=== PATIENT | male | born 1980 | race Caucasian/White ===

== ENCOUNTER → 2019-12-21 | Outpatient (CLI) | payer BC ==
--- NOTE | 2019-12-21 17:51 | Diagnostic Imaging Report ---
INDICATION: Thyromegaly TECHNIQUE: Grayscale sonographic images of the thyroid gland. CORRELATION STUDY: None FINDINGS: RIGHT LOBE: 4.5 x 1.4 x 1.3 cm. There is normal echotexture about the right lobe. LEFT LOBE: 5.5 x 1.5 x 1.2 cm. Very small oval peripherally hypoechoic central echogenic nodule. This measures 5 x 3 x 5 mm. Minimal peripheral vascularity. Isthmus appears unremarkable. IMPRESSION: Borderline prominent thyroid gland. A single small left lobe nodule. (Normal gland size: 4-5 x 2 x 2 cm) Dictated by: Dictated on workstation # [id number]
== END ==
LOC: RAD 14:58
PROVIDERS: ATTEND Nurse Practitioner Family
DX: E01.0 Iodine-deficiency related diffuse (endemic) goiter (principal)
CPT/HCPCS: 76536

== ENCOUNTER 2023-01-01 14:48 | Outpatient (RCR) | payer BC | END 2023-01-02 | disposition home or self-care (01) | PROVIDERS: ATTEND Internal Medicine | DX: S73.11 Iliofemoral ligament sprain of hip (principal); X58.XXXD Exposure to other specified factors, subsequent encounter ==

== ENCOUNTER → 2023-01-09 | Outpatient (CLI) | payer BC ==
--- NOTE | 2023-01-09 10:38 | Diagnostic Imaging Report ---
EXAMINATION: Magnetic resonance imaging of the pelvis without contrast DATE: January 09, 2023. COMPARISON: None. INDICATION: 42-year-old male, low back and left hip and inguinal pain. TECHNIQUE: Magnetic Resonance Imaging sequences were performed of the pelvis without contrast. TENDONS AND MUSCLES: The gluteus cristiano muscles and their origins and insertions are intact bilaterally. The tendons and muscles of the greater trochanter - gluteus minimus, piriformis and gluteus medius - are intact bilaterally. Both common hamstring attachments on the ischial tuberosities are intact and the extensor muscles of the thigh are intact. The visualized portions of the flexors and adductor muscles of the thigh and their attachments on the pelvis and hips are intact. Both iliopsoas and iliacus muscles are intact. The bilateral iliopsoas tendons are intact. HIPS AND SACROILIAC JOINTS: The contours of the femoral heads and acetabuli are smooth and symmetric. There is no identified fluid-filled labral tear or paralabral cyst. The articular cartilage of the hips appears grossly intact. There is no hip joint effusion. The sacroiliac joints are unremarkable. LUMBAR SPINE: Please see separately dictated same day MRI lumbar spine report for findings of the lumbar spine better assessed on the dedicated study. There is transitional lumbosacral anatomy. BONE: There is no acute fracture, bone contusion, or evidence of osteonecrosis. There is no identified concerning bone lesion. BURSAE AND SOFT TISSUES: The bursae and soft tissues surrounding the pelvis and hips are within normal limits. IMPRESSION: 1. Unremarkable evaluation of both hip joints. 2. Intact muscles and tendons. 3. No acute fracture, bone contusion, evidence of osteonecrosis, or focal concerning bone lesion. 4. Unremarkable bursal and additional soft tissue assessment. 5. Please see separately dictated MR lumbar spine report for findings of the lumbar spine. There is transitional lumbosacral anatomy. Dictated by: Dictated on workstation # [id number]
--- NOTE | 2023-01-09 10:38 | Diagnostic Imaging Report ---
PROCEDURE: MRI lumbar spine. TECHNIQUE: Multiplanar, multisequence MRI of the lumbar spine was performed without contrast. INDICATION: Segmental and somatic dysfunction of lumbar region, low back pain which radiates into the left groin. There is minimal left convexity curvature of lumbar spine. Lumbar vertebral body heights and disc spaces are maintained. There is extensive desiccation of L4-L5 disc with diffuse disc bulging and endplate spurring which is eccentric towards the left. This results in moderately severe left neural foraminal stenosis with associated left degenerative facet arthropathy. At L3-L4, there is also diffuse annular disc bulging with mild bilateral neural foraminal stenosis. No central spinal stenosis is seen. At the L2-L3 level, there is mild diffuse annular bulging and degenerative facet arthropathy which is also greater on the left. There is a small right lateral disc protrusion causing mild right neural foraminal stenosis. Conus medullaris is unremarkable at the T12-L1 level. There is no marrow signal abnormality to indicate fracture. IMPRESSION: Moderate lumbar degenerative findings most pronounced at the L2-L3 level with mild right neural foraminal stenosis and at L5-S1 where there is mild right and moderately severe left neural foraminal stenosis. Dictated by: Dictated on workstation # [id number]
== END ==
LOC: RAD 07:31
PROVIDERS: ATTEND Internal Medicine
DX: S73.11 Iliofemoral ligament sprain of hip (principal)
CPT/HCPCS: 72148; 72195

== ENCOUNTER 2023-02-20 15:43 | Outpatient (RCR) | payer BC | END 2023-03-04 | disposition home or self-care (01) | PROVIDERS: ATTEND Internal Medicine | DX: S73.11 Iliofemoral ligament sprain of hip (principal); X58.XXXD Exposure to other specified factors, subsequent encounter ==

== ENCOUNTER 2023-03-31 16:19 | Outpatient (RCR) | payer BC | END 2023-04-03 | disposition home or self-care (01) | PROVIDERS: ATTEND Internal Medicine | DX: S73.11 Iliofemoral ligament sprain of hip (principal); X58.XXXD Exposure to other specified factors, subsequent encounter ==